=== PATIENT | female | born 1955 | race Caucasian/White ===

== ENCOUNTER 2016-11-08 06:52 | Observation (INO) | payer MEDICARE, OTHER ==
[2016-11-08] VITALS (9 sets, daily range): BP systolic 119–159; BP diastolic 57–83
[~2016-11-08] VITALS: Ht 157.5 cm; Wt 70.3 kg
[~2016-11-08 06:52] MED LIST: ALL DAY10 MG PO; AMOX/K CLAV875 M1 PO; AMOXICILLIN500 MG PO; ATENOLOL25 MG PO; BACTRIM DS1 TAB OR; CYCLOBENZAPR10 MG PO; CYMBALTA60 MG PO; DILAUDID 2MG2 MG/TA1 PO; DILAUDID2 MG PO; EFFEXOR37.5 MG OR; FLEXERIL PO; GABAPENTIN300 MG PO; HYDROMORPHONE HC2 MG PO; KLOR-CON M15 OR; LORTAB 1010 MG PO; LORTAB 5 OR; MILK THISTL PO; MULTIVITAMIN PO; NADOLOL PO; NADOLOL20 MG PO; NITROGLYCER0.4 MG SL; NO; OXYCODONE5 MG PO; PAROXETINE HCL20 MG PO; PAROXETINE20 MG PO; PAXIL PO; PAXIL20 MG PO; PRILOSEC20 MG/CAP PO; SELENIUM50 MCG PO; TIZANIDINE HCL4 M1 PO; TRAMADOL HCL50 MG PO; ULTRAM50 MG PO; WOMENS DAILY FORMULA OR; [UNRECOGNIZED DRUG - OTHER] PO
[2016-11-08] MEDS ORDERED: GABAPENTIN100 MG PO (07:12)
[2016-11-09 03:25] VITALS: BP 133/78
[2016-11-09 07:18] VITALS: BP 123/81
[2016-11-09 09:22] VITALS: BP 123/81
[2016-11-14] MEDS ORDERED: MULTIVITAMIN PO (10:38)
== END 2016-11-09 10:17 | disposition home or self-care (01) ==
LOC: ORM 06:52 → MS2 11:30
PROVIDERS: ADMIT Surgery; ATTEND Surgery
PROC: 0WUF0JZ Supplement Abdominal Wall with Synthetic Substitute, Open Approach (ICD-10-PCS; principal; 2016-11-08)
DX: K43.6 Other and unspecified ventral hernia with obstruction, without gangrene (principal); I10 Essential (primary) hypertension; M19.90 Unspecified osteoarthritis, unspecified site; Z86.19 Personal history of other infectious and parasitic diseases
CPT/HCPCS: J2710

== ENCOUNTER 2017-01-17 05:33 | Day surgery (SDC) | payer MEDICARE, OTHER ==
[~2017-01-17] VITALS: Ht 157.5 cm; Wt 69.9 kg
[~2017-01-17 05:33] MED LIST changes: +GABAPENTIN100 MG PO
[2017-01-17 07:43] VITALS: BP 133/60
== END 2017-01-17 08:14 | disposition home or self-care (01) ==
LOC: ORM 05:33
PROVIDERS: ATTEND Anesthesiology Pain Medicine
PROC: 3E0R3BZ Introduction of Anesthetic Agent into Spinal Canal, Percutaneous Approach (ICD-10-PCS; principal; 2017-01-17)
DX: M48.07 Spinal stenosis, lumbosacral region (principal); M54.5 Low back pain
CPT/HCPCS: Q9967

== ENCOUNTER 2017-01-31 06:04 | Day surgery (SDC) | payer MEDICARE, OTHER ==
[~2017-01-31] VITALS: Ht 157.5 cm; Wt 68.9 kg
[2017-01-31 08:58] VITALS: BP 138/79
== END 2017-01-31 09:22 | disposition home or self-care (01) ==
LOC: ORM 06:04
PROVIDERS: ATTEND Anesthesiology Pain Medicine
PROC: 3E0R33Z Introduction of Anti-inflammatory into Spinal Canal, Percutaneous Approach (ICD-10-PCS; principal; 2017-01-31)
DX: M48.07 Spinal stenosis, lumbosacral region (principal); M54.5 Low back pain
CPT/HCPCS: Q9967

== ENCOUNTER 2017-11-08 20:50 | Emergency (ER) | payer MEDICARE, MEDICAID ==
[~2017-11-08] VITALS: Ht 157.5 cm; Wt 64.0 kg
[~2017-11-08 20:50] MED LIST changes: +EQL IBUPROFEN200 M1 PO
[2017-11-08] MEDS ORDERED: CETIRIZINE10 MG PO (21:04)
[2017-11-08] MEDS ORDERED: ENALAPRIL5 MG PO (21:04)
[2017-11-08] MEDS ORDERED: IPRATROPIU0.5 MG/3 M IN (21:05)
[2017-11-08 21:59] LABS: HEMATOCRIT 32.8 % (37.0-47.0); HEMOGLOBIN 11.6 g/dl (12.0-16.0); IMMATURE GRANULOCYTES 0.5 % (0.0-5.0); MEAN CELL VOLUME 93.7 fL CALC (80.0-100.0); MEAN CORPUSCULAR HGB 33.1 pG CALC (26.0-32.0); MEAN CORPUSCULAR HGB CONC 35.4 g/L CALC (32.0-36.0); NEUT# 7.4 thou/uL (2.00-7.15); RED BLOOD COUNT 3.5 mill/uL (4.20-5.60); RED CELL DISTRI WIDTH 14.4 % (11.5-15.5)
[2017-11-08 22:08] LABS: ALBUMIN 3.6 g/dL (3.2-5.0); ALKALINE PHOSPHATASE 150 u/l (38-126); AMYLASE 70 u/l (30-110); ANION GAP 13 (6-22 (CALC)); BILIRUBIN, TOTAL 1.4 mg/dL (0.0-1.4); BUN 35 mg/dL (7-17); BUN/CREATININE RATIO 72 (12-20 (CALC)); CARBON DIOXIDE 25 mmol/l (22-30); CHLORIDE 108 mmol/l (95-108); CREATININE 0.5 mg/dL (0.5-1.0); GFR > 60 ML/MIN (>=60 (CALC)); GFR FOR AFR.AMER. > 60 ML/MIN (>=60 (CALC)); LIPASE 326 u/l (23-300); POTASSIUM 4.2 mmol/l (3.5-5.1); SGOT/AST 65 u/l (14-36); SGPT/ALT 60 u/l (9-52); SODIUM 142 mmol/l (137-146); TOTAL PROTEIN 6.6 g/dL (6.3-8.2)
[2017-11-08 23:17] LABS: URINE BILIRUBIN - DIPSTICK NEGATIVE (NEGATIVE); URINE BLOOD DIPSTICK NEGATIVE (NEGATIVE); URINE COLOR YELLOW; URINE GLUCOSE - DIPSTICK NEGATIVE (NEGATIVE); URINE KETONE NEGATIVE (NEGATIVE); URINE NITRITE - DIPSTICK NEGATIVE (Negative); URINE PROTEIN - DIPSTICK NEGATIVE (NEG-TRACE)
[2017-11-08 23:20] LABS: URINE CLARITY CLOUDY; URINE LEUK ESTERASE SMALL (NEGATIVE)
[2017-11-08 23:28] LABS: URINE BACTERIA FEW hpf; URINE MUCUS FEW hpf (NONE-FEW); URINE RBC 0-2 RBC/hpf (0-5); URINE SQUAMOUS EPITHELIAL CELL FEW EPI/hpf (0-FEW)
[2017-11-09] MEDS ORDERED: PROTONIX40 MG PO
[2017-11-09] MEDS ORDERED: BACTRIM DS1 TAB PO (00:02)
[2017-11-09 00:17] VITALS: BP 148/72
== END 2017-11-09 00:19 | disposition home or self-care (01) ==
LOC: ED 20:50
PROVIDERS: Family Medicine
DX: K29.01 Acute gastritis with bleeding (principal); F10.20 Alcohol dependence, uncomplicated; R10.13 Epigastric pain; R10.11 Right upper quadrant pain; N39.0 Urinary tract infection, site not specified; Z79.82 Long term (current) use of aspirin; B95.7 Other staphylococcus as the cause of diseases classified elsewhere; R53.1 Weakness
CPT/HCPCS: S0164

== ENCOUNTER 2018-01-21 14:22 | Emergency (ER) | payer MEDICARE, MEDICAID ==
[~2018-01-21] VITALS: Ht 157.5 cm; Wt 61.4 kg
[~2018-01-21 14:22] MED LIST changes: +BACTRIM DS1 TAB PO; +CETIRIZINE10 MG PO; +ENALAPRIL5 MG PO; +IPRATROPIU0.5 MG/3 M IN; +PROTONIX40 MG PO
[2018-01-21] MEDS ORDERED: ACYCLOVIR400 MG PO (15:36)
[2018-01-21] MEDS ORDERED: MULTIVITAMI1 PO (15:38)
[2018-01-21] MEDS ORDERED: PANTOPRAZOLE SO40 M1 PO (15:39)
[2018-01-21] MEDS ORDERED: PERCOGESI1 PO (16:36)
[2018-01-21] MEDS ORDERED: LORTAB 5/3255 MG PO (16:52)
[2018-01-21 16:55] VITALS: BP 112/75
== END 2018-01-21 16:55 | disposition home or self-care (01) ==
LOC: ED 14:22
PROC: 2W3CX1Z Immobilization of Right Lower Arm using Splint (ICD-10-PCS; principal; 2018-01-21)
DX: S52.601A Unspecified fracture of lower end of right ulna, initial encounter for closed fracture (principal); I10 Essential (primary) hypertension; B19.20 Unspecified viral hepatitis C without hepatic coma; J44.9 Chronic obstructive pulmonary disease, unspecified; V28.2XXA Unspecified motorcycle rider injured in noncollision transport accident in nontraffic accident, initial encounter; Y92.009 Unspecified place in unspecified non-institutional (private) residence as the place of occurrence of the external cause

== ENCOUNTER 2018-04-15 11:29 | Emergency (ER) | payer MEDICARE, MEDICAID ==
[~2018-04-15] VITALS: Ht 157.5 cm; Wt 60.0 kg
[~2018-04-15 11:29] MED LIST changes: +ACYCLOVIR400 MG PO; +LORTAB 5/3255 MG PO; +MULTIVITAMI1 PO; +PANTOPRAZOLE SO40 M1 PO; +PERCOGESI1 PO
[2018-04-15] MEDS ORDERED: TESSALON PERLE100 MG PO (13:30)
[2018-04-15] MEDS ORDERED: PREDNISONE20 MG PO (13:30)
[2018-04-15 13:35] VITALS: BP 132/84
== END 2018-04-15 13:35 | disposition home or self-care (01) ==
LOC: ED 11:29
DX: J10.1 Influenza due to other identified influenza virus with other respiratory manifestations (principal); I10 Essential (primary) hypertension; B19.20 Unspecified viral hepatitis C without hepatic coma; J44.9 Chronic obstructive pulmonary disease, unspecified; F17.210 Nicotine dependence, cigarettes, uncomplicated; Z87.440 Personal history of urinary (tract) infections

== ENCOUNTER 2018-12-01 15:15 | Emergency (ER) | payer MEDICARE, MEDICAID ==
[~2018-12-01] VITALS: Ht 157.5 cm; Wt 70.0 kg
[~2018-12-01 15:15] MED LIST changes: +PREDNISONE20 MG PO; +TESSALON PERLE100 MG PO
[2018-12-01] MEDS ORDERED: KEFLEX500 M1 PO (15:58)
[2018-12-01 16:00] VITALS: BP 155/82
== END 2018-12-01 16:09 | disposition home or self-care (01) ==
LOC: ED 15:15
PROC: 0HQKXZZ Repair Right Lower Leg Skin, External Approach (ICD-10-PCS; principal; 2018-12-01)
DX: S81.011A Laceration without foreign body, right knee, initial encounter (principal); I10 Essential (primary) hypertension; W26.8XXA Contact with other sharp object(s), not elsewhere classified, initial encounter; Y93.89 Activity, other specified; Y92.89 Other specified places as the place of occurrence of the external cause; Y99.0 Civilian activity done for income or pay

== ENCOUNTER 2018-12-15 14:39 | Emergency (ER) | payer MEDICARE, MEDICAID ==
[~2018-12-15] VITALS: Ht 157.5 cm; Wt 60.8 kg
[~2018-12-15 14:39] MED LIST changes: +KEFLEX500 M1 PO
[2018-12-15 15:05] VITALS: BP 147/95
[2018-12-15] MEDS ORDERED: ATROVENT H17 MCG/ACT IN (15:06)
[2018-12-15] MEDS ORDERED: NEURONTIN300 MG PO (15:07)
== END 2018-12-15 15:05 | disposition home or self-care (01) ==
LOC: ED 14:39
DX: S81.011D Laceration without foreign body, right knee, subsequent encounter (principal); X58.XXXD Exposure to other specified factors, subsequent encounter

== ENCOUNTER 2019-05-20 14:59 | Inpatient (IN) | payer MEDICARE, MEDICAID ==
[~2019-05-20] VITALS: Ht 157.5 cm; Wt 63.0 kg
[~2019-05-20 14:59] MED LIST changes: +ATROVENT H17 MCG/ACT IN; +NEURONTIN300 MG PO
[2019-05-20 16:28] LABS: HEMATOCRIT 36.6 % (37.0-47.0); HEMOGLOBIN 12.4 g/dl (12.0-16.0); IMMATURE GRANULOCYTES 0.5 % (0.0-5.0); MEAN CORPUSCULAR HGB 33.5 pG CALC (26.0-32.0); MEAN CORPUSCULAR HGB CONC 33.9 g/L CALC (32.0-36.0); NEUT# 1.92 thou/uL (2.00-7.15); RED BLOOD COUNT 3.7 mill/uL (4.20-5.60); RED CELL DISTRI WIDTH 16.2 % (11.5-15.5)
[2019-05-20 16:33] LABS: MEAN CELL VOLUME 98.9 fL CALC (80.0-100.0)
[2019-05-20 16:40] LABS: ALKALINE PHOSPHATASE 213 u/l (38-126); ANION GAP 11 (6-22 (CALC)); BUN 21 mg/dL (8-23); BUN/CREATININE RATIO 30 (12-20 (CALC)); CARBON DIOXIDE 23 mmol/l (22-30); CHLORIDE 106 mmol/l (95-108); CREATININE 0.7 mg/dL (0.5-1.0); ETHYL ALCOHOL 0 mg/dl (0-30); GFR > 60 ML/MIN (>=60 (CALC)); GFR FOR AFR.AMER. > 60 ML/MIN (>=60 (CALC)); POTASSIUM 4.3 mmol/l (3.5-5.1); SGOT/AST 153 u/l (9-36); SODIUM 136 mmol/l (137-146); TOTAL PROTEIN 7.4 g/dL (6.3-8.2)
[2019-05-20 16:42] LABS: ALBUMIN 2.8 g/dL (3.2-5.0); BILIRUBIN, TOTAL 3.1 mg/dL (0.0-1.4)
[2019-05-20 16:56] LABS: URINE BLOOD DIPSTICK NEGATIVE (NEGATIVE); URINE GLUCOSE - DIPSTICK NEGATIVE (NEGATIVE); URINE KETONE TRACE mg/dL (NEGATIVE); URINE LEUK ESTERASE NEGATIVE (NEGATIVE); URINE PROTEIN - DIPSTICK 30 mg/dL (NEG-TRACE); URINE SPECIFIC GRAVITY 1.025
[2019-05-20 17:17] LABS: BARBITURATES NEGATIVE (NEGATIVE); COCAINE NEGATIVE (NEGATIVE); METHADONE NEGATIVE (NEGATIVE); OXCYCODONE NEGATIVE (NEGATIVE); TETRAHYDROCANNABIONOL NEGATIVE (NEGATIVE); TRICYLIC ANTIDEPRESSANTS NEGATIVE (NEGATIVE)
[2019-05-20 17:18] LABS: URINE BILIRUBIN - DIPSTICK MODERATE (NEGATIVE); URINE COLOR AMBER; URINE NITRITE - DIPSTICK POSITIVE (Negative)
[2019-05-20 17:19] LABS: URINE BACTERIA RARE hpf; URINE MUCUS FEW hpf (NONE-FEW); URINE RBC 0-2 RBC/hpf (0-5); URINE SQUAMOUS EPITHELIAL CELL FEW EPI/hpf (0-FEW); URINE WBC 0-2 WBC/hpf (0-5)
[2019-05-20 18:30] LABS: ACT PARTIAL THROMBO TIME 37.2 SECONDS (20.0-32.5); INTERNATIONAL NORMALIZED RATIO 1.8 RATIO (0.7-1.3); PROTHROMBIN TIME 18.7 SECONDS (9.0-12.5)
[2019-05-20 19:35] LABS: AMYLASE 99 u/l (30-110); LIPASE 361 u/l (23-300)
[2019-05-20 20:06] VITALS: BP 125/82
[2019-05-21 03:26] VITALS: BP 93/56
[2019-05-21 06:44] LABS: HEMOGLOBIN 12.9 g/dl (12.0-16.0); MEAN CELL VOLUME 99.5 fL CALC (80.0-100.0); MEAN CORPUSCULAR HGB 33.8 pG CALC (26.0-32.0); MEAN CORPUSCULAR HGB CONC 33.9 g/L CALC (32.0-36.0); NEUT# 1.57 thou/uL (2.00-7.15); RED BLOOD COUNT 3.82 mill/uL (4.20-5.60); RED CELL DISTRI WIDTH 15.9 % (11.5-15.5)
[2019-05-21 06:53] LABS: INTERNATIONAL NORMALIZED RATIO 1.8 RATIO (0.7-1.3); PROTHROMBIN TIME 18.1 SECONDS (9.0-12.5)
[2019-05-21 07:13] LABS: ALBUMIN 2.5 g/dL (3.2-5.0); ALKALINE PHOSPHATASE 169 u/l (38-126); ANION GAP 10 (6-22 (CALC)); BILIRUBIN, TOTAL 3.8 mg/dL (0.0-1.4); BUN 16 mg/dL (8-23); BUN/CREATININE RATIO 31 (12-20 (CALC)); CARBON DIOXIDE 23 mmol/l (22-30); CHLORIDE 108 mmol/l (95-108); CREATININE 0.5 mg/dL (0.5-1.0); GFR > 60 ML/MIN (>=60 (CALC)); GFR FOR AFR.AMER. > 60 ML/MIN (>=60 (CALC)); MAGNESIUM 1.5 mg/dL (1.6-2.3); POTASSIUM 4.1 mmol/l (3.5-5.1); SGOT/AST 137 u/l (9-36); SODIUM 136 mmol/l (137-146); TOTAL PROTEIN 6.7 g/dL (6.3-8.2)
[2019-05-21 08:00] VITALS: BP 111/60
[2019-05-21 15:10] VITALS: BP 127/73
[2019-05-21 19:14] VITALS: BP 136/83
[2019-05-22 04:03] VITALS: BP 124/71
[2019-05-22 07:37] VITALS: BP 149/79
[2019-05-22 15:50] VITALS: BP 142/77
[2019-05-22 19:27] VITALS: BP 142/73
[2019-05-23 04:00] VITALS: BP 138/70
[2019-05-23 08:27] LABS: HEMATOCRIT 36.5 % (37.0-47.0); HEMOGLOBIN 12.5 g/dl (12.0-16.0); IMMATURE GRANULOCYTES 0.7 % (0.0-5.0); MEAN CELL VOLUME 98.6 fL CALC (80.0-100.0); MEAN CORPUSCULAR HGB 33.8 pG CALC (26.0-32.0); MEAN CORPUSCULAR HGB CONC 34.2 g/L CALC (32.0-36.0); NEUT# 1.59 thou/uL (2.00-7.15); RED BLOOD COUNT 3.7 mill/uL (4.20-5.60); RED CELL DISTRI WIDTH 15.7 % (11.5-15.5)
[2019-05-23 08:38] LABS: ALBUMIN 2.8 g/dL (3.2-5.0); ALKALINE PHOSPHATASE 161 u/l (38-126); ANION GAP 10 (6-22 (CALC)); BILIRUBIN, TOTAL 4.9 mg/dL (0.0-1.4); BUN 7 mg/dL (8-23); BUN/CREATININE RATIO 20 (12-20 (CALC)); CARBON DIOXIDE 23 mmol/l (22-30); CHLORIDE 107 mmol/l (95-108); CREATININE 0.4 mg/dL (0.5-1.0); GFR > 60 ML/MIN (>=60 (CALC)); GFR FOR AFR.AMER. > 60 ML/MIN (>=60 (CALC)); POTASSIUM 3.7 mmol/l (3.5-5.1); SGOT/AST 142 u/l (9-36); SODIUM 137 mmol/l (137-146); TOTAL PROTEIN 7.2 g/dL (6.3-8.2)
[2019-05-23 09:02] VITALS: BP 133/95
[2019-05-23 09:03] VITALS: BP 133/95
[2019-05-23] MEDS ORDERED: ALDACTONE25 MG PO (13:14)
[2019-05-23] MEDS ORDERED: FUROSEMIDE20 MG PO (13:15)
== END 2019-05-23 14:01 | disposition home or self-care (01) | DRG 433 ==
LOC: ED 14:59 → ED-I 18:09 → ED 18:24 → MS2 18:25
PROVIDERS: ADMIT Internal Medicine; ATTEND Internal Medicine
PROC: 0W9G3ZZ Drainage of Peritoneal Cavity, Percutaneous Approach (ICD-10-PCS; principal; 2019-05-21)
DX: K70.31 Alcoholic cirrhosis of liver with ascites (principal); K76.6 Portal hypertension; N39.0 Urinary tract infection, site not specified; I85.10 Secondary esophageal varices without bleeding; B19.20 Unspecified viral hepatitis C without hepatic coma; I10 Essential (primary) hypertension; J44.9 Chronic obstructive pulmonary disease, unspecified; F32.9 Major depressive disorder, single episode, unspecified; F17.200 Nicotine dependence, unspecified, uncomplicated
CPT/HCPCS: G0378

== ENCOUNTER 2019-05-30 | Emergency (ER) | payer MEDICARE, MEDICAID ==
[~2019-05-30] MED LIST changes: +ALDACTONE25 MG PO; +FUROSEMIDE20 MG PO
[2019-05-30 18:21] LABS: HEMATOCRIT 37.6 % (37.0-47.0); IMMATURE GRANULOCYTES 0.3 % (0.0-5.0); MEAN CELL VOLUME 97.9 fL CALC (80.0-100.0); MEAN CORPUSCULAR HGB 33.9 pG CALC (26.0-32.0); MEAN CORPUSCULAR HGB CONC 34.6 g/L CALC (32.0-36.0); NEUT# 2.1 thou/uL (2.00-7.15); RED BLOOD COUNT 3.84 mill/uL (4.20-5.60); RED CELL DISTRI WIDTH 15.8 % (11.5-15.5)
[2019-05-30 18:30] LABS: ALBUMIN 3.3 g/dL (3.2-5.0); ALKALINE PHOSPHATASE 194 u/l (38-126); ANION GAP 10 (6-22 (CALC)); BILIRUBIN, TOTAL 4.4 mg/dL (0.0-1.4); BUN 19 mg/dL (8-23); BUN/CREATININE RATIO 34 (12-20 (CALC)); CARBON DIOXIDE 27 mmol/l (22-30); CHLORIDE 103 mmol/l (95-108); CREATININE 0.6 mg/dL (0.5-1.0); GFR > 60 ML/MIN (>=60 (CALC)); GFR FOR AFR.AMER. > 60 ML/MIN (>=60 (CALC)); POTASSIUM 4.4 mmol/l (3.5-5.1); SGOT/AST 160 u/l (9-36); SODIUM 136 mmol/l (137-146); TOTAL PROTEIN 8.1 g/dL (6.3-8.2)
[2019-05-30 18:33] LABS: URINE BILIRUBIN - DIPSTICK NEGATIVE (NEGATIVE); URINE BLOOD DIPSTICK NEGATIVE (NEGATIVE); URINE COLOR YELLOW; URINE GLUCOSE - DIPSTICK NEGATIVE (NEGATIVE); URINE KETONE NEGATIVE (NEGATIVE); URINE LEUK ESTERASE NEGATIVE (NEGATIVE); URINE NITRITE - DIPSTICK NEGATIVE (Negative); URINE PROTEIN - DIPSTICK NEGATIVE (NEG-TRACE); URINE SPECIFIC GRAVITY 1.015; URINE UROBILINOGEN - DIPSTICK 0.2 E.U./dL (0.2)
== END 2019-05-31 00:20 | disposition short-term general hospital (02) ==
PROVIDERS: Family Medicine
DX: K74.60 Unspecified cirrhosis of liver (principal); R18.8 Other ascites; B19.20 Unspecified viral hepatitis C without hepatic coma; I10 Essential (primary) hypertension; J44.9 Chronic obstructive pulmonary disease, unspecified; Z87.440 Personal history of urinary (tract) infections

== ENCOUNTER 2019-09-04 11:24 | Emergency (ER) | payer MEDICARE, MEDICAID ==
[2019-09-04 12:40] LABS: HEMATOCRIT 32.4 % (37.0-47.0); HEMOGLOBIN 11.2 g/dl (12.0-16.0); IMMATURE GRANULOCYTES 0.3 % (0.0-5.0); MEAN CELL VOLUME 101.3 fL CALC (80.0-100.0); MEAN CORPUSCULAR HGB CONC 34.6 g/dL CAL (32.0-36.0); NEUT# 2.66 thou/uL (2.00-7.15); RED BLOOD COUNT 3.2 mill/uL (4.20-5.60); RED CELL DISTRI WIDTH 15.6 % (11.5-15.5)
[2019-09-04 12:42] VITALS: BP 102/79
[2019-09-04 12:53] LABS: URINE BILIRUBIN - DIPSTICK NEGATIVE (NEGATIVE); URINE BLOOD DIPSTICK NEGATIVE (NEGATIVE); URINE COLOR YELLOW; URINE GLUCOSE - DIPSTICK NEGATIVE (NEGATIVE); URINE KETONE NEGATIVE (NEGATIVE); URINE NITRITE - DIPSTICK NEGATIVE (Negative); URINE PROTEIN - DIPSTICK NEGATIVE (NEG-TRACE); URINE UROBILINOGEN - DIPSTICK 0.2 E.U./dL (0.2)
[2019-09-04 12:54] LABS: ALBUMIN 3.4 g/dL (3.2-5.0); ALKALINE PHOSPHATASE 178 u/l (38-126); ANION GAP 12 (6-22 (CALC)); BILIRUBIN, TOTAL 1.8 mg/dL (0.0-1.4); BUN 28 mg/dL (8-23); BUN/CREATININE RATIO 27 (12-20 (CALC)); CARBON DIOXIDE 22 mmol/l (22-30); CHLORIDE 107 mmol/l (95-108); GFR 56 ML/MIN (>=60 (CALC)); GFR FOR AFR.AMER. > 60 ML/MIN (>=60 (CALC)); LIPASE 716 u/l (23-300); POTASSIUM 4.9 mmol/l (3.5-5.1); SGOT/AST 94 u/l (9-36); SODIUM 136 mmol/l (137-146); TOTAL PROTEIN 7.8 g/dL (6.3-8.2)
[2019-09-04 13:06] LABS: URINE LEUK ESTERASE SMALL (NEGATIVE)
[2019-09-04 13:08] LABS: URINE SQUAMOUS EPITHELIAL CELL FEW EPI/hpf (0-FEW)
== END 2019-09-04 12:42 | disposition left against medical advice (07) ==
LOC: ED 11:24
PROVIDERS: Family Medicine
DX: R10.9 Unspecified abdominal pain (principal); I10 Essential (primary) hypertension; B19.20 Unspecified viral hepatitis C without hepatic coma; J44.9 Chronic obstructive pulmonary disease, unspecified; F17.200 Nicotine dependence, unspecified, uncomplicated; Z91.19 Patient's noncompliance with other medical treatment and regimen

== ENCOUNTER 2019-09-18 15:59 | Emergency (ER) | payer MEDICARE, MEDICAID ==
[2019-09-18 17:15] VITALS: BP 134/89
== END 2019-09-18 18:02 | disposition left against medical advice (07) ==
LOC: ED 15:59 → LWOBS 18:02 → ED 18:02 → LWOBS 18:22
DX: Z91.19 Patient's noncompliance with other medical treatment and regimen (principal)